=== PATIENT | female | born 1960 | race Caucasian/White ===

== ENCOUNTER 2020-01-23 05:59 | Inpatient (IN) ==
[2020-01-23 06:45] LABS: BASO# 0.04 X1000 (0.0-0.2); BASO% 0.3 % (0.0-0.8); EOS# 0.13 X1000 (0.0-0.7); HEMATOCRIT 50.1 % (37.0-47.0); HEMOGLOBIN 16.4 g/dL (12.0-16.0); IMM GRAN# 0.04 X1000 (0.0-0.04); IMM GRAN% 0.3 % (0.0-0.5); LYMPH# 2.45 X1000 (1.2-3.4); LYMPH% 19.4 % (20.5-51.1); MCH 29.8 PG (27-31); MCHC 32.7 g/dL (33-37); MCV 90.9 FL (81-99); MONO# 1.79 X1000 (0.11-0.59); MONO% 14.2 % (1.7-9.3); MPV 9.7 FL (7.4-10.4); NEUT# 8.16 X1000 (1.4-6.5); NEUT% 64.8 % (42.2-75.2); PLT 471 X1000 (130-400); RBC 5.51 XMIL (4.2-5.4); RDW 15.2 % (11.5-14.5); WBC 12.61 X1000 (4.8-10.8)
[2020-01-23 06:53] LABS: EOS 2 % (1-10); LYMPHS 20 % (21-51); MONO 10 % (1-9); SEGS 68 % (42-75)
--- NOTE | 2020-01-23 07:18 | PROVIDER DOCUMENTATION ---
HPI-Abdominal Pain/GI Problem - General Chief Complaint: Flank Pain Stated Complaint: UTI Time Seen by Provider: 01/23/20 07:07 Allergies/Adverse Reactions: Patient Allergies Allergy/AdvReac Type Severity Reaction Status Date / Time No Known Allergies Allergy Verified 09/26/18 18:07 Home Medications: Home Medication List Medication Instructions Recorded Confirmed Last Taken Type Imatinib Mesylate [Gleevec] 400 mg PO DAILY 04/15/15 01/23/20 01/17/20 18:00 History Promethazine [Phenergan] 25 mg PO Q6-8H PRN PRN 04/15/15 01/23/20 01/16/20 08:00 History Fentanyl 50 mcg TOP Q3DAYS 07/21/18 01/23/20 01/20/20 09:00 History CefDINIR [Omnicef] 300 mg PO BID #14 cap 01/24/20 Unknown Rx - History of Present Illness-ABD Nature of Presenting Problems: pt arrived via ems. pt states she has tumors in her pelvix, stints in her ureters that she has to get replaced soon, pt states she self caths and recently urine has been more "thick" and more frequenct. pt c/o nicol flank pain. pt also states she is out of her fentayl patches. pt has ostomy. 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 Pt is A&o3 Abdominal Pain Onset Location: reports: generalized abdomen Pain Radiation: reports: no radiation Quality of Pain: reports: none Severity in ED: reports: moderate Onset/Duration: reports: gradual Timing: reports: still present Activities at Onset: reports: none Exposure to sick contacts?: No Modifying Factors: improves with: nothing Associated Symptoms: reports: constipation, genitourinary problems. denies: fever/chills, shortness of breath Last BM: unsure Dark Stools Present?: reports: none noticed Rectal Bleeding: reports: none Rectal Pain: reports: none Review of Systems - Adult - REVIEW OF SYSTEMS - ADULT Constitutional: reports: fatique Eyes: reports: no symptoms reported Ears, Nose, Mouth & Throat: reports: no symptoms reported Cardiovascular: reports: no symptoms reported Respiratory: reports: no symptoms reported Gastrointestinal: reports: no symptoms reported Genitourinary: reports: see HPI, flank pain, other (self cath) Musculoskeletal: reports: no symptoms reported Integumentary: reports: no symptoms reported Neurological: reports: no symptoms reported Psychiatric: reports: no symptoms reported Endocrine: reports: no symptoms reported Hematologic/Lymphatic: reports: no symptoms reported Allergic/Immunologic: reports: no symptoms reported Past History - Adult - PAST MEDICAL HISTORY-ADULT Review of Records: reports: Nursing Assessment Review Major Childhood Illnesses: reports: denies history Cardiovascular: reports: HTN Respiratory: reports: denies history Gastrointestinal: reports: cancer Obstetrical/Gynecological: reports: denies history Genitourinary: reports: denies history Musculoskeletal: reports: denies history Neurological: reports: denies history Endocrine/Immune: reports: denies history Other Conditions: reports: other cancer - PRIOR SURGERIES/PROCEDURES Surgical/Procedure History: reports: bowel surgery - IMMUNIZATION STATUS Childhood Immunizations: See Nurse Assessment Flu Vaccine: See Nurse Assessment - FAMILY HISTORY Family History: reviewed, not pertinent Physical Exam-General - PHYSICAL EXAM-ADULT Initial Vital Signs Reviewed: Yes - CONSTITUTIONAL General Appearance: alert, no apparent distress - EYES Eyes: PERRL/EOMI, pink conjunctivae - HEAD, EARS, NOSE, MOUTH & THROAT HENMT: normocephalic/atraumatic, moist mucous membranes, normal ENT inspection - NECK Neck: non-tender, supple - RESPIRATORY Respiratory: chest non-tender, lungs clear, normal breath sounds - CARDIOVASCULAR Cardiovascular: no edema, tachycardia - GASTROINTESTINAL (ABDOMEN) Abdominal Exam: soft, other (diffuse tenderness) - LYMPHATIC Lymphatic: no adenopathy - MUSCULOSKELETAL Back Exam: normal inspection, no CVA tenderness, no vertebral tenderness Extremity: non-tender, normal gait - SKIN Integumentary: normal color, normal turgor, warm/dry - NEUROLOGIC Neurologic: grossly normal, no motor/sensory deficits - PSYCHIATRIC Psych/Mental Status: normal mood/affect Progress - PLAN OF CARE/RESULTS Progress/Plan/Lab Results: Vital Signs - 8 hr 01/23/20 05:59 Temperature 98.0 F Pulse Rate 127 H Respiratory Rate 18 Blood Pressure 144/98 O2 Sat by Pulse Oximetry 98 Laboratory Results - last 24 hr 01/23/20 01/23/20 01/23/20 06:33 06:33 06:35 WBC 12.61 H RBC 5.51 H Hgb 16.4 H Hct 50.1 H MCV 90.9 MCH 29.8 MCHC 32.7 L RDW Std Deviation 15.2 H Plt Count 471 H MPV 9.7 Immature Gran % (Auto) 0.3 Neut % (Auto) 64.8 Lymph % (Auto) 19.4 L [place] % (Auto) 14.2 H Eos % (Auto) 1.0 Baso % (Auto) 0.3 Immature Gran # (Auto) 0.04 Neut # (Auto) 8.16 H Lymph # (Auto) 2.45 [place] # (Auto) 1.79 H Eos # (Auto) 0.13 Baso # (Auto) 0.04 Segmented Neutrophils 68 Lymphocytes 20 L Monocytes 10 H Eosinophils 2 Plasma Lactate 1.8 Urine Source CLEAN CATCH Orders Category Date Time Status NEWS Score 2-4:Order NEWS Lactate Series NOW Care 01/23/20 06:[address] ABDOMEN/PELVIS W/O CONTRAST [CT] Stat Exams 01/23/20 07:16 Ordered CBC WITH DIFF [HEME] Stat Lab 01/23/20 06:33 Completed CMP [COMPREHENSIVE METABOLIC PANEL] [CHEM] Stat Lab 01/23/20 07:16 Uncollected LACTATE, PLASMA [CHEM] Lab 01/23/20 06:33 Completed LACTATE, PLASMA [CHEM] Lab 01/23/20 09:15 Uncollected LACTATE, PLASMA [CHEM] Lab 01/23/20 12:15 Uncollected UA [URINALYSIS W/POSS RFLX CULT] [URINALYSIS] Stat Lab 01/23/20 06:35 Results Result Diagrams: 01/24/20 05:05 01/24/20 05:05 Departure - Departure Date of Disposition Decision: 01/23/20 Time of Disposition Decision: 12:09 DIAGNOSIS: Chronic abdominal pain UTI (urinary tract infection) Qualifiers: Urinary tract infection type: catheter-associated UTI Indwelling urinary catheter type: unspecified Encounter type: initial encounter Qualified Code(s): T83.511A - Infection and inflammatory reaction due to indwelling urethral catheter, initial encounter; N39.0 - Urinary tract infection, site not specified Disposition: ADMITTED INPATIENT 09 Certified Medical Emergency: Emergent Condition: Good - Critical Care Note This patient required my direct & personal management of CC.: No Attestation - Physician/ [place] Attestation Patient care was provided by Advanced Practice Provider:: No The physician spent face to face time with patient:: Yes Advanced Practice Provider documentation review:: Supervising physician onsite and consulted in the evaluation and care of this patient. The physician did have a face to face encounter with the patient.
[2020-01-23 07:40] LABS: ALBUMIN 4.6 g/dL (3.5-5.0); CALCIUM 10.1 mg/dL (8.8-10.2); CREATININE 1.8 mg/dL (0.5-0.9); TOTAL BILIRUBIN 0.2 mg/dL (0.20-1.00); TOTAL PROTEIN 8.8 g/dL (6.3-8.3)
[2020-01-23 07:44] LABS: URINE SOURCE CLEAN CATCH
[2020-01-23 08:00] LABS: CLARITY TURBID (CLEAR); COLOR PALE YELLOW; GLUCOSE URINE NEGATIVE (NEGATIVE); URINE BACTERIA 4+ /HFP; URINE CAST NONE SEEN /LPF; URINE CRYSTAL NONE SEEN /HPF; URINE EPITHELIAL CELLS <10 /HPF (<10); URINE RBC TNTC /HPF (<10); URINE WBC TNTC /HPF (<10); URINE YEAST NONE SEEN /HPF
[2020-01-23 08:01] LABS: BILIRUBIN URINE NEGATIVE (NEGATIVE); BLOOD URINE LARGE (NEGATIVE); KETONE URINE TRACE mg/dL (NEGATIVE); LEUKOCYTES URINE MODERATE (NEGATIVE); NITRITE URINE NEGATIVE (NEGATIVE); PROTEIN URINE >=300 mg/dL (NEGATIVE); SP GRAVITY URINE 1.005; UROBILINOGEN URINE 0.2 EU/dL (0.2-1.0)
--- NOTE | 2020-01-23 08:03 | Diag Imaging Result Doc PS360 ---
EXAM: CT ABDOMEN/PELVIS W/O CONTRAST - 01/23/2020 HISTORY: abdominal pain TECHNIQUE: CT abdomen/pelvis without contrast. No contrast administered per request of the referring provider. COMPARISON: 09/26/2018 FINDINGS: The visualized lung bases are clear. There is a 1.7 x 2 cm low-density lesion in the right lobe liver which appears decreased in size from 2 x 2.6 cm on prior exam. There is an approximately 0.8 x 1.1 cm low-density lesion in the more superior right lobe of liver which is decreased in size from 1 x 1.4 cm on the prior exam. There is no discrete new liver lesion identified. There are no acute changes identified in the spleen, adrenal glands, or pancreas. There are no calcified gallstones or pericholecystic inflammation identified. There are bilateral double pigtail ureteral stents which extends from the respective renal pelvis to the urinary bladder. There is substantial left hydronephrosis which may have increased mildly. There is a small nonobstructing stone in the lower left kidney. There is mild to moderate right hydronephrosis which appears to have decreased. There is some renal cortical thinning which is most prominent on the right. There are postsurgical changes of distal colectomy with left lower quadrant colostomy. There is a large amount retained fecal debris in the remaining colon suggesting constipation. There is no evidence of bowel obstruction. There is no free air, substantial free fluid, or abscess identified. Images of the pelvis otherwise show stable presacral scarring. There is stable calcified lesion at the right superior lateral pelvis. There are postsurgical changes of distal colectomy with left lower quadrant colostomy. IMPRESSION: Status post distal colectomy with left lower quadrant colostomy. Large amount retained of retained fecal debris in colon suggesting constipation. No bowel obstruction. No abscess. No free air. Bilateral double pigtail ureteral stents in place. Substantial left hydronephrosis mild to moderate right hydronephrosis. Renal cortical thinning, both prominent on the right. Mild decrease in size of low-density liver lesions. This exam was performed using automated exposure control, adjustment of mA or kV according to patient size, and/or use of iterative reconstruction technique. Electronically signed by Eduardo Zarate 01/23/2020 8:01 AM
[2020-01-23] MEDS ORDERED: NS 1,000 ML IV ONE (08:50)
[2020-01-23] MEDS ORDERED: ROCEPHIN 1 GM in NS 50 ML IV ONE (08:50)
[2020-01-23] MEDS ORDERED: ZOFRAN IV PRN (11:00)
[2020-01-23] MEDS: NS 1,000 ML IV SCH (11:24)
--- NOTE | 2020-01-23 12:20 | HISTORY AND PHYSICAL ---
PRIMARY CARE PHYSICIAN: Dr. Tracey CHIEF COMPLAINT: Flank pain. HISTORY OF PRESENT ILLNESS: Ms. Winchester is a 59-year-old female with a past medical history of chronic UTIs, renal stenting x10, chronic kidney disease stage 4, hypertension; GI cancer with possible metastasis to the liver, on oral chemotherapy; drug abuse, hydronephrosis, chronic pain, and home self-catheterization. The patient does present to the ER today with complaints of flank pain. The patient states she has a 4-day history of pain where she has been taking Azo and has been drinking cranberry juice. She has had decreased urine output. The patient states she knew she was getting a UTI so she decided to come to the ER at this time. Laboratory findings do show an elevated white blood cell count of 12.61. Urinalysis does show a large amount of protein. Microscopic shows white blood cells, 4+ bacteria. The patient does deny any cough, congestion, dyspnea, or flu-like symptoms, neck pain, stiffness, excessive thirst, chest pain, palpitations, orthopnea, PND, hemoptysis, nausea, vomiting, melena, hematemesis, diarrhea, constipation, muscle pain or weakness, syncope, dizziness, vertigo, or any other pertinent symptoms at this time. REVIEW OF SYSTEMS: A 10-point review of systems has been obtained and are negative except what is stated above in HPI. PAST MEDICAL HISTORY: 1. Chronic UTIs with self-catheterization at home. 2. GI cancer with possible metastasis, on oral chemotherapy. The patient's doctor is at the [facility] in [place]. 3. Hydronephrosis. 4. Chronic kidney disease stage 4. 5. Chronic pain. 6. Hypertension. 7. Drug abuse. 8. Tobacco dependency. PAST SURGICAL HISTORY: 1. Appendectomy. 2. Tubal ligation. 3. Hysterectomy. 4. Hernia repair. 5. In 2004, a GI tumor removal. 6. In 2005, first of 10 bladder stentings, as well as bladder repair due to a fistula. 7. Subsequent ostomy placement due to tumor removal. FAMILY HISTORY: Father is known to have diabetes and [place] with coronary artery disease. Mother is osteoarthritis, COPD. She has a sister that has COPD. SOCIAL HISTORY: The patient does smoke 1/2 pack to 1 pack of cigarettes per day for greater than 40 years. She occasionally drinks alcohol. She does smoke marijuana and use methamphetamines. She does live with her boyfriend and some other relatives. The patient states she is . ALLERGIES: No known drug allergies. HOME MEDICATIONS: Home medication reconciliation has not been performed in the computer. PHYSICAL EXAMINATION: VITAL SIGNS: Temperature 98.9 degrees, pulse rate 121, respiratory rate 19, blood pressure 132/94, O2 saturation 96% on room air. GENERAL: This is a 59-year-old female. She is lying in the ER stretcher. She is well developed. She is in no acute distress. She is thin and frail. HEENT: Atraumatic, normocephalic. Pupils are equal, round, reactive to light. Mucous membranes are dry. NECK: Supple. No lymphadenopathy. Trachea is midline. No JVD. CARDIOVASCULAR: Tachycardic on the monitor. It is regular rate and rhythm. There are no murmurs, gallops, or rubs appreciated. RESPIRATORY: Lung sounds are clear. Respirations are nonlabored. There is no accessory muscle usage. GASTROINTESTINAL: The abdomen is flat. There is an ostomy bag noted to the left lower quadrant. Stoma is pink and viable. Bag is intact. There are still contents in bag. Bowel sounds are present x4. Abdomen is nondistended. GENITOURINARY: There is no suprapubic tenderness noted. The patient is having flank pain to her back. The patient is having decreased urine output. NEUROLOGIC: Patient is awake, alert, oriented x4. She is talking excessively. She does seem anxious. MUSCULOSKELETAL: Full distal strength noted. No abnormalities, no deformities. EXTREMITIES: No clubbing, no cyanosis, no edema. DP and PT pulses are present and palpable. SKIN: Warm, dry, and intact. No rashes. No bruises. No diaphoresis. LABS AND DIAGNOSTICS: White blood cell count 12.61, hemoglobin 16.4, hematocrit 50.1, platelet count 471,000. Sodium 138, potassium 5, BUN is 44, creatinine 1.8, glucose 110. Urinalysis does show a large amount of protein, large amount of blood, does show in the microscopic, moderate amount of white blood cell count, 4+ bacteria. CT of the abdomen and pelvis does show a left lower quadrant colostomy, large amount of retained fecal debris suggesting constipation. No obstruction. No abscess. It does show bilateral ureteral stents, left hydronephrosis and right hydronephrosis, mild decrease in size of low- density liver lesions. Shows a 1.7 x 2 cm low-density lesion in the right lobe of the liver which appears decreased in size from 2 x 2.6 cm on prior exam. There is approximately a 0.8 x 1.1 cm low-density lesion in the more superior right lobe of the liver, which is decreased in size from 1 x 1.4 cm on the prior exam. There is no new liver lesions identified. Shows a small nonobstructing stone in the left lower kidney. ASSESSMENT: 1. Urinary tract infection with a history of chronic urinary tract infections and self- catheterization at home. 2. History of chronic kidney disease stage 4. 3. History of gastrointestinal cancer with possible metastatic disease to the liver, on oral chemotherapy. 4. History of drug abuse. 5. Tobacco dependency. 6. Hypertension. PLAN: We will admit this patient to the medical floor. We will place her on IV fluid hydration of normal saline at 75 mL an hour. We will place her on IV Rocephin 1 gram IV every 24 hours. We will repeat labs in the morning. We will place her on ekg monitor tech. Supplemental O2. We will resume home medications as appropriate. We will place her on a regular diet. Blood cultures and urine cultures have been obtained. We will await those results. I will place her on SCDs for DVT prophylaxis. I have given her a nicotine patch, and I have counseled her about smoking cessation for greater than 5 minutes. I have also counseled her about drug cessation information for greater than 5 minutes. We will provide her with Zofran 4 mg IV every 4 hours p.r.n. for her nausea. All other further treatment pending hospital course and laboratory data. Dictated by SEGUNDO Hernandez for Victoriano Holt MD cc: MD Torsten Carvajal MD
[2020-01-23] MEDS: NICODERM PATCH TD SCH (12:27)
[2020-01-23] MEDS: ROCEPHIN 1 GM in NS 50 ML IV SCH (14:23)
[2020-01-23 18:58] LABS: UR AMPHETAMINES QUAL PRESUMPTIVE POSITIVE (NONE DETECT); UR BARBITUATES QUAL NONE DETECTED (NONE DETECT); UR BENZODIAZEPIN QUAL NONE DETECTED (NONE DETECT); UR CANNABINOIDS QUAL NONE DETECTED (NONE DETECT); UR COCAINE QUAL NONE DETECTED (NONE DETECT); UR METHADONE QUAL NONE DETECTED (NONE DETECT); UR METHAMPHETAMINE QUAL PRESUMPTIVE POSITIVE (NONE DETECT); UR OPIATES QUAL NONE DETECTED (NONE DETECT); UR OXYCODONE QUAL PRESUMPTIVE POSITIVE (NONE DETECT); UR PCP QUAL NONE DETECTED (NONE DETECT); UR PROPOXYPHENE QUAL NONE DETECTED (NONE DETECT); UR TCA QUAL NONE DETECTED (NONE DETECT)
--- NOTE | 2020-01-23 21:48 | HISTORY AND PHYSICAL ---
ADDENDUM: Patient seen and examined by myself. Full note dictated and discussed with nurse practitioner. Patient presented to the hospital noting that she has chronic UTIs and does self- catheterizations at home. Her major concern is that her Duragesic patch fell off and she currently is out of patches. She states that she needs patches so that she does not go into withdrawal. After much discussion, she does note that she has been having some flank pain and has had decreased urine output. It is quite difficult to keep her on task and to keep her answering the questions that are asked. Overall, it does appear as though she may have a urinary tract infection. CT shows bilateral urinary stents, left hydronephrosis, right hydronephrosis. She has a white count of 12. We are going to admit to the hospital, antibiotics, IV fluids, and will follow. cc: Victoriano Holt MD
[2020-01-24] MEDS: NS 1,000 ML IV SCH (01:53)
[2020-01-24 06:11] LABS: BASO# 0.03 X1000 (0.0-0.2); BASO% 0.4 % (0.0-0.8); EOS# 0.19 X1000 (0.0-0.7); EOS% 2.6 % (0.0-10.0); HEMATOCRIT 40.8 % (37.0-47.0); HEMOGLOBIN 12.5 g/dL (12.0-16.0); IMM GRAN# 0.01 X1000 (0.0-0.04); IMM GRAN% 0.1 % (0.0-0.5); LYMPH# 1.79 X1000 (1.2-3.4); LYMPH% 24.7 % (20.5-51.1); MCH 28.5 PG (27-31); MCHC 30.6 g/dL (33-37); MCV 92.9 FL (81-99); MONO# 1.44 X1000 (0.11-0.59); MONO% 19.8 % (1.7-9.3); NEUT% 52.4 % (42.2-75.2); PLT 359 X1000 (130-400); RBC 4.39 XMIL (4.2-5.4); WBC 7.26 X1000 (4.8-10.8)
[2020-01-24 06:13] LABS: CALCIUM 8.9 mg/dL (8.8-10.2); CREATININE 1.4 mg/dL (0.5-0.9); POTASSIUM 4.4 mmol/L (3.5-5.1)
[2020-01-24 06:59] LABS: EOS 2 % (1-10); LYMPHS 25 % (21-51); MONO 18 % (1-9); SEGS 55 % (42-75)
[2020-01-24 07:29] VITALS: BP 174/99
[2020-01-24] MEDS ORDERED: PATIENT'S OWN MED PO SCH (09:00)
[2020-01-24] MEDS: NICODERM PATCH TD SCH (10:07)
--- NOTE | 2020-01-24 10:37 | Diag Imaging Result Doc PS360 ---
EXAM: CT ABDOMEN/PELVIS W/O CONTRAST HISTORY: follow up on hydronephrosis TECHNIQUE: CT abdomen and pelvis without intravenous contrast COMPARISON: 01/23/2020 FINDINGS: No change in the appearance of the organs in the upper abdomen. There are bilateral ureteral stents with persistent hydronephrosis. No definite change. No change in the tiny left lower pole calyceal stone. Prominent atherosclerosis. No aortic aneurysm. There is a large amount of stool in the colon. There is a left lower quadrant ostomy. There is a Singh catheter in the urinary bladder. Large pelvic calcifications are unchanged. IMPRESSION: Stable exam This exam was performed using automated exposure control, adjustment of mA or kV according to patient size, and/or use of iterative reconstruction technique. Electronically signed by Ulysses Carrillo 01/24/2020 10:34 AM
[2020-01-24] MEDS: ROCEPHIN 1 GM in NS 50 ML IV SCH (12:07)
--- NOTE | 2020-01-25 05:27 | DISCHARGE SUMMARY ---
ADMISSION DATE: 01/23/2020 DISCHARGE DATE: 01/24/2020 ADDENDUM: Patient seen and examined by myself. Full note dictated and discussed with nurse practitioner. On discharge, patient is awake, alert. Currently, she is in no distress. She does have hydronephrosis although this has improved. She has chronic stents. Does not appear as though she has a urinary infection as her culture thus far has been negative. We are going to discharge her home. She will follow up outpatient with her urologist. She has an appointment prescheduled next week. Her renal function has improved. Creatinine was 1.8, currently down to 1.4. cc: Victoriano Holt MD
--- NOTE | 2020-01-25 13:15 | DISCHARGE SUMMARY ---
ADMISSION DATE: 01/23/2020 DISCHARGE DATE: 01/24/2020 PRIMARY CARE PHYSICIAN: Dr. Sandhu ADMISSION DIAGNOSES: 1. Urinary tract infection with history of chronic UTIs and self catheterization at home. 2. History of CKD stage 4. 3. History of gastrointestinal cancer with possible metastasis to the liver on oral chemotherapy. 4. History of drug abuse. 5. Tobacco dependency. 6. Hypertension. DISCHARGE DIAGNOSIS: 1. Urinary tract infection with history of chronic UTIs and self catheterization at home. 2. History of CKD stage 4. 3. History of gastrointestinal cancer with possible metastasis to the liver on oral chemotherapy. 4. History of drug abuse. 5. Tobacco dependency. 6. Hypertension. SUMMARY OF FINDINGS: This is a 59-year-old female who presented to the ER with complaints of flank pain for 4 days. Has started taking azo and drinking cranberry juice, had decreased urinary output, felt that she was getting a UTI, so she came on to the emergency room. Her white count was 12.61. UA showed a large amount of protein. Microscopic showed white blood cells, 4+ bacteria. She was admitted, placed on IV hydration, IV antibiotics. She had an abdomen and pelvic CT on arrival that showed she had her bilateral double pigtail ureteral stents in place and substantial left hydronephrosis, mild to moderate right hydronephrosis. We repeated that CT and it was a stable exam. It did not appear, though, that she had a UTI. Her urine culture did grow a diphtheroids at 20 to 30,000 colony count and it was felt that she could safely be discharged home and follow up with her urologist. She has an appointment prescheduled for next week. Her creatinine did go down from 1.8 to 1.4. It was felt that she could safely be discharged home. DISCHARGE MEDICATIONS: Included cefdinir 300 mg p.o. b.i.d. #14 with no refills, fentanyl 50 mcg topically q. 3 days, Gleevec 400 mg p.o. daily, and Phenergan 25 mg p.o. q. 6-8 hours p.r.n. FOLLOWUP: She will follow up with her urologist in the next 1 to 2 weeks and with her primary care physician. All discharge instructions were reviewed with the patient and she verbalized understanding. TIME SPENT: 35 minute discharge. Dictated by SEGUNDO Rasheed for Victoriano Holt MD cc: SEGUNDO Rasheed MD [facility]
[2020-01-26] MEDS ORDERED: DURAGESIC 50 MICROGM/HR PATCH TD SCH (06:00)
== END 2020-01-24 13:00 | disposition home or self-care (01) | DRG 436 ==
LOC: P.ED 05:59 → P.MEDSURG 11:35
PROVIDERS: ATTEND Family Medicine

== ENCOUNTER 2020-02-05 20:05 | Inpatient (IN) ==
--- NOTE | 2020-02-05 20:56 | Diag Imaging Result Doc PS360 ---
EXAM: CHEST-2 VIEWS - 02/05/2020 HISTORY: chest pain TECHNIQUE: Chest two views COMPARISON: None. FINDINGS: Heart size is normal. There are apparent mild COPD changes. There is no consolidation, pleural effusion, or pneumothorax identified. IMPRESSION: Apparent mild COPD changes. No evidence of acute disease. Electronically signed by EduardoSampleOn Inckenyon 02/05/2020 8:54 PM
[2020-02-05 20:57] LABS: BASO# 0.03 X1000 (0.0-0.2); BASO% 0.2 % (0.0-0.8); EOS# 0.34 X1000 (0.0-0.7); EOS% 2.6 % (0.0-10.0); HEMATOCRIT 35.3 % (37.0-47.0); HEMOGLOBIN 10.7 g/dL (12.0-16.0); IMM GRAN# 0.02 X1000 (0.0-0.04); IMM GRAN% 0.2 % (0.0-0.5); LYMPH# 2.15 X1000 (1.2-3.4); LYMPH% 16.2 % (20.5-51.1); MCH 28.4 PG (27-31); MCHC 30.3 g/dL (33-37); MCV 93.6 FL (81-99); MONO# 0.87 X1000 (0.11-0.59); MONO% 6.5 % (1.7-9.3); MPV 9.3 FL (7.4-10.4); NEUT# 9.89 X1000 (1.4-6.5); NEUT% 74.3 % (42.2-75.2); PLT 442 X1000 (130-400); RBC 3.77 XMIL (4.2-5.4); RDW 14.9 % (11.5-14.5)
[2020-02-05 21:05] LABS: INR 0.89; PROTIME 12.5 Seconds (11.0-16.0)
[2020-02-05 21:06] LABS: PTT 31.6 Seconds (22.3-41.8)
[2020-02-05 21:14] LABS: ALBUMIN 3.7 g/dL (3.5-5.0); CALCIUM 9.4 mg/dL (8.8-10.2); CREATININE 1.6 mg/dL (0.5-0.9); POTASSIUM 4.2 mmol/L (3.5-5.1); TOTAL BILIRUBIN 0.2 mg/dL (0.20-1.00); TOTAL PROTEIN 6.3 g/dL (6.3-8.3)
--- NOTE | 2020-02-05 21:40 | PROVIDER DOCUMENTATION ---
This chart was entered by Zoila Ortiz Scribe, acting as scribe for Sara Torres MD. HPI-Chest Pain - General Chief Complaint: Chest Pain Stated Complaint: Chest Tightness Time Seen by Provider: 02/05/20 20:22 Source: patient Allergies/Adverse Reactions: Patient Allergies Allergy/AdvReac Type Severity Reaction Status Date / Time No Known Allergies Allergy Verified 02/05/20 20:11 Home Medications: Home Medication List Medication Instructions Recorded Confirmed Last Taken Type Imatinib Mesylate [Gleevec] 400 mg PO DAILY 04/15/15 01/23/20 01/17/20 18:00 History Fentanyl 50 mcg TOP DAILY 02/05/20 02/05/20 Unknown History - History of Present Illness-CP Nature of Presenting Problem: 59yof presents to ED by EMS cc chest tightness that happened 4x today and also had some tingling down back of head and both arms. Pt denies SOB. Pt has hx of gastrointestinal "stromal" tumors and is a pt at [facility]. Pt reports fmhx of heart disease from father and pt has hx of stents in both kidneys. Pt denies pain in ED. She denies any previous cardiac history. She is currently chest pain free. Pt is a Smoker. Location: reports: central Quality of Pain: reports: tightness Severity in ED: mild Onset/Duration: this morning Timing: resolved prior to arrival Context/Activities at Onset: reports: light activity Modifying Factors: improves with: nothing Associated Symptoms: reports: denies symptoms Nitro Today/Relief: no nitro taken today Aspirin Treatment Today: no aspirin today Prior Chest Pain/Cardiac Workup: reports: no prior chest pain Similar Symptoms Previously?: No Recently Seen Here or By Another Healthcare Provider: No Review of Systems - Adult - REVIEW OF SYSTEMS - ADULT Constitutional: reports: see HPI. denies: chills, fever, fatique Eyes: reports: no symptoms reported Ears, Nose, Mouth & Throat: reports: no symptoms reported Cardiovascular: reports: see HPI, chest pain. denies: palpitations Respiratory: reports: see HPI. denies: shortness of breath Gastrointestinal: reports: no symptoms reported Genitourinary: reports: no symptoms reported Musculoskeletal: reports: no symptoms reported Integumentary: reports: no symptoms reported Neurological: reports: no symptoms reported Psychiatric: reports: no symptoms reported Endocrine: reports: no symptoms reported Hematologic/Lymphatic: reports: no symptoms reported Allergic/Immunologic: reports: no symptoms reported All Other Systems: Reviewed and Negative Past History - Adult - PAST MEDICAL HISTORY-ADULT Review of Records: reports: Nursing Assessment Review, Medications Reviewed, Social history reviewed & non-contributory. Major Childhood Illnesses: reports: denies history Cardiovascular: reports: HTN Respiratory: reports: denies history Gastrointestinal: reports: cancer Obstetrical/Gynecological: reports: denies history Genitourinary: reports: denies history Musculoskeletal: reports: denies history Neurological: reports: denies history Endocrine/Immune: reports: denies history Other Conditions: reports: other cancer - PRIOR SURGERIES/PROCEDURES Surgical/Procedure History: reports: bowel surgery - IMMUNIZATION STATUS Childhood Immunizations: See Nurse Assessment Flu Vaccine: See Nurse Assessment - FAMILY HISTORY Family History: reviewed, not pertinent - SOCIAL HISTORY Smoking: cigarettes, greater than 1 pack/day Provider spent 3-5 mins advising pt. on dangers of tobacco.: Discussed manners to quit use, and f/u contacts for add'l counseling. Physical Exam-General - PHYSICAL EXAM-ADULT Initial Vital Signs Reviewed: Yes - CONSTITUTIONAL General Appearance: alert, no apparent distress, thin, other (chronically ill appearing). negative: anxious, combative - EYES Eyes: PERRL/EOMI, pink conjunctivae. negative: photophobia - HEAD, EARS, NOSE, MOUTH & THROAT HENMT: normocephalic/atraumatic. negative: angioedema - NECK Neck: supple, normal inspection - RESPIRATORY Respiratory: chest non-tender, no respiratory distress, no accessory muscle use, decreased breath sounds (bilaterally, mild). negative: rhonchi, wheezing - CARDIOVASCULAR Cardiovascular: normal peripheral pulses, regular rate, rhythm, no murmur. negative: bradycardia, tachycardia - GASTROINTESTINAL (ABDOMEN) Abdominal Exam: normal bowel sounds, non tender, soft - MUSCULOSKELETAL Back Exam: normal inspection Extremity: normal inspection, no pedal edema. negative: deformity - SKIN Integumentary: normal color, warm/dry. negative: diaphoresis, jaundice, rash - NEUROLOGIC Neurologic: grossly normal - PSYCHIATRIC Psych/Mental Status: normal mood/affect, oriented x 3. negative: anxious - HEART Score HEART Score: History: Moderately Suspicious HEART Score: ECG: Non-Specific Repolarization Disturbance/LBBB/PM HEART Score: Age: 45-65 Years HEART Score: Risk Factors for Atherosclerotic Disease: 1 or 2 Risk Factors HEART Score: Troponin: 1-3x Normal Limit Total HEART Score:: 5 Progress - PLAN OF CARE/RESULTS Progress/Plan/Lab Results: Vital Signs - 8 hr 02/05/20 20:06 02/05/20 22:53 Temperature 98.1 F Pulse Rate 89 84 Respiratory Rate 16 20 Blood Pressure 146/88 131/85 O2 Sat by Pulse Oximetry 96 96 Laboratory Results - last 24 hr 02/05/20 02/05/20 02/05/20 20:32 20:32 20:32 WBC RBC Hgb Hct MCV MCH MCHC RDW Std Deviation Plt Count MPV Immature Gran % (Auto) Neut % (Auto) Lymph % (Auto) [place] % (Auto) Eos % (Auto) Baso % (Auto) Immature Gran # (Auto) Neut # (Auto) Lymph # (Auto) [place] # (Auto) Eos # (Auto) Baso # (Auto) PT INR PTT (Actin FS) Sodium 144 Potassium 4.2 Chloride 103 Carbon Dioxide 29 Anion Gap 12 BUN 28 H Creatinine 1.6 H Estimated GFR/1.73 m2 33 BUN/Creatinine Ratio 18 Glucose 92 Calculated Osmolality 292 Calcium 9.4 Total Bilirubin 0.20 AST 28 ALT 30 Alkaline Phosphatase 123 H Creatine Kinase 67 Troponin T High Sens 60 H Tgv-O-Exllgvctmje Pept 115 Total Protein 6.3 Albumin 3.7 Globulin 3.0 Albumin/Globulin Ratio 1.0 02/05/20 02/05/20 02/05/20 20:32 20:32 22:35 WBC 13.30 H RBC 3.77 L Hgb 10.7 L Hct 35.3 L MCV 93.6 MCH 28.4 MCHC 30.3 L RDW Std Deviation 14.9 H Plt Count 442 H MPV 9.3 Immature Gran % (Auto) 0.2 Neut % (Auto) 74.3 Lymph % (Auto) 16.2 L [place] % (Auto) 6.5 Eos % (Auto) 2.6 Baso % (Auto) 0.2 Immature Gran # (Auto) 0.02 Neut # (Auto) 9.89 H Lymph # (Auto) 2.15 [place] # (Auto) 0.87 H Eos # (Auto) 0.34 Baso # (Auto) 0.03 PT 12.5 INR 0.89 PTT (Actin FS) 31.6 Sodium Potassium Chloride Carbon Dioxide Anion Gap BUN Creatinine Estimated GFR/1.73 m2 BUN/Creatinine Ratio Glucose Calculated Osmolality Calcium Total Bilirubin AST ALT Alkaline Phosphatase Creatine Kinase Troponin T High Sens 96 H D Klo-Y-Qxufnulrwvu Pept Total Protein Albumin Globulin Albumin/Globulin Ratio Orders Category Date Time Status Cardiac Monitoring DIRECTED Care 02/05/20 20:12 Active Nursing- MD Consult Request ROUTINE Care 02/05/20 23:20 Active Oxygen Therapy- ED Nursing DIRECTED Care 02/05/20 20:12 Active Resuscitation Status Routine Care 02/05/20 23:17 Ordered Saline Loc NOW Care 02/05/20 20:12 Active Physician/Provider Consults Routine Cons 02/05/20 23:20 Ordered CHEST-2 VIEWS [RAD] Stat Exams 02/05/20 20:12 Completed CBC WITH ELECTRONIC DIFF [HEME] Stat Lab 02/05/20 20:32 Completed CK PROFILE [SP CHEM] Stat Lab 02/05/20 20:32 Completed COMPREHENSIVE METABOLIC PANEL [CHEM] Stat Lab 02/05/20 20:32 Completed PRO B-NATRIURETIC PEPTIDE Stat Lab 02/05/20 20:32 Completed PROTIME WITH INR [COAG] Stat Lab 02/05/20 20:32 Completed PTT [COAG] Stat Lab 02/05/20 20:32 Completed TROPONIN T HIGH SENSITIVITY Q4H Lab 02/06/20 03:00 Uncollected TROPONIN T HIGH SENSITIVITY Q4H Lab 02/06/20 07:00 Uncollected TROPONIN T HIGH SENSITIVITY Q4H Lab 02/06/20 11:00 Uncollected TROPONIN T HIGH SENSITIVITY Stat Lab 02/05/20 20:32 Completed TROPONIN T HIGH SENSITIVITY Stat Lab 02/05/20 22:35 Completed Aspirin Med 02/06/20 09:00 Ordered 324 mg PO DAILY Aspirin Med 02/05/20 23:16 Discontinued 324 mg PO NOW ONE Enoxaparin 1 mg/kg [Lovenox 1 mg/kg] Med 02/05/20 23:16 Discontinued 1 each SUBQ NOW ONE Enoxaparin 1 mg/kg [Lovenox 1 mg/kg] Med 02/06/20 09:00 Ordered 1 each SUBQ Q12H CP/SOB/Palp >45 yrs of Age Stat Oth 02/05/20 20:12 Ordered EKG [EKG] Q4H Ther 02/06/20 03:00 Ordered EKG [EKG] Q4H Ther 02/06/20 07:00 Ordered EKG [EKG] Q4H Ther 02/06/20 11:00 Ordered EKG [EKG] Stat Ther 02/05/20 20:12 Ordered Transfer/Admit Order [TRANSFER] Routine Transfer 02/05/20 23:17 Ordered Result Diagrams: 02/05/20 20:32 02/05/20 20:32 - EKG 1 Time of EKG reading by physician:: 20:09 EKG Read and Signed by:: Sara Torres EKG Interpretation (*Must complete 3 of following elements*): Abnormal (borderline;NO STEAMI) Rate: 88 Rhythm: NSR Yeoman: left AK Interval: normal 2 Time of EKG reading by physician:: 22:43 EKG Read and Signed by:: Sara Torres EKG Interpretation (*Must complete 3 of following elements*): Normal (NO STEMI) Rate: 81 Rhythm: NSR QRS: normal AK Interval: normal - XRAY 1 XRAY: Bilateral XRAY Study: Chest Impression: See EMR Report (IMPRESSION: Apparent mild COPD changes. No evidence of acute disease. Electronically signed by Eduardo Zarate 02/05/2020 8:54 PM) - CONSULTS/PCP/HOSPITALIST Notification #1 *Consult/PCP/Hospitalist*: Dr. Serrano Time Discussed: 23:15 Consult Disposition: Admit Departure - Departure Date of Disposition Decision: 02/05/20 Time of Disposition Decision: 23:13 DIAGNOSIS: NSTEMI (non-ST elevated myocardial infarction), Elevated troponin Chest pain Qualifiers: Chest pain type: unspecified Qualified Code(s): R07.9 - Chest pain, unspecified Disposition: ADMITTED INPATIENT 09 Certified Medical Emergency: Emergent Condition: Stable Additional Instructions: ED Follow Up Instructions: You have been treated by a care provider in the Emergency Department. These instructions are being provided to you so you can have an understanding of how to care for yourself upon discharge. Upon discharge from the Emergency Department, you are responsible for making arrangements for follow-up care by a physician of your choice. Take all prescribed medications as directed. Return to the Emergency Department immediately for any new or worsening symptoms. You may call the Physician Referral phone number at [phone] to obtain a list of Physicians who are taking new patients. Referrals and Follow-Ups: None,PCP [Primary Care Provider] - Discharge Education: Steps to Quit Smoking, [id number] - Critical Care Note This patient required my direct & personal management of CC.: No Attestation - Physician/ [place] Attestation Patient care was provided by Advanced Practice Provider:: No The physician spent face to face time with patient:: Yes Advanced Practice Provider documentation review:: Supervising physician onsite and consulted in the evaluation and care of this patient. The physician did have a face to face encounter with the patient. This chart was documented by the indicated scribe, (Zoila Ortiz, Rogerioibuzeil) and accurately reflects the services I performed and decisions made by me, Sara Torres MD, as attested by the provider's signature.
[2020-02-05] MEDS ORDERED: ASPIRIN PO ONE (23:16)
[2020-02-05] MEDS ORDERED: LOVENOX 1 MG/KG SUBQ ONE (23:16)
[2020-02-05] MEDS ORDERED: LOVENOX SUBQ ONE (23:30)
--- NOTE | 2020-02-05 23:33 | EKG Report ---
Test Performed on : 02/05/2020 10:40:20 PM Test Reason : chest pain Blood Pressure : / mmHG Vent. Rate : 081 BPM Atrial Rate : 081 BPM P-R Int : 130 ms QRS Dur : 078 ms QT Int : 408 ms P-R-T Axes : 059 069 057 degrees QTc Int : 473 ms Normal sinus rhythm. Normal ECG No previous ECGs available Unconfirmed Result
[2020-02-06] MEDS ORDERED: NICODERM PATCH TD ONE (00:11)
--- NOTE | 2020-02-06 02:53 | EKG Report ---
Test Performed on : 02/06/2020 02:47:23 AM Test Reason : CP Blood Pressure : / mmHG Vent. Rate : 083 BPM Atrial Rate : 083 BPM P-R Int : 130 ms QRS Dur : 070 ms QT Int : 414 ms P-R-T Axes : 066 067 054 degrees QTc Int : 486 ms Normal sinus rhythm. Prolonged QT Abnormal ECG When compared with ECG of 05-FEB-2020 22:40, (Unconfirmed) No significant change was found Confirmed by Christ Eldridge MD ([id number]) on 02/10/2020 7:15:47 PM
--- NOTE | 2020-02-06 06:31 | EKG Report ---
Test Performed on : 02/06/2020 06:20:18 AM Test Reason : CP Blood Pressure : / mmHG Vent. Rate : 080 BPM Atrial Rate : 080 BPM P-R Int : 128 ms QRS Dur : 080 ms QT Int : 414 ms P-R-T Axes : 060 067 054 degrees QTc Int : 477 ms Normal sinus rhythm. Normal ECG When compared with ECG of 06-FEB-2020 02:47, (Unconfirmed) No significant change was found Unconfirmed Result
[2020-02-06] MEDS ORDERED: MORPHINE IV PRN (07:52)
[2020-02-06] MEDS ORDERED: TYLENOL PO PRN (07:52)
[2020-02-06] MEDS ORDERED: NITROGLYCERIN SL PRN (07:52)
[2020-02-06] MEDS ORDERED: ZOFRAN IV PRN (07:52)
[2020-02-06 08:47] LABS: BASO# 0.03 X1000 (0.0-0.2); BASO% 0.2 % (0.0-0.8); EOS# 0.33 X1000 (0.0-0.7); EOS% 2.2 % (0.0-10.0); HEMATOCRIT 35.1 % (37.0-47.0); HEMOGLOBIN 10.9 g/dL (12.0-16.0); IMM GRAN# 0.04 X1000 (0.0-0.04); IMM GRAN% 0.3 % (0.0-0.5); LYMPH# 2.47 X1000 (1.2-3.4); LYMPH% 16.2 % (20.5-51.1); MCH 29.2 PG (27-31); MCHC 31.1 g/dL (33-37); MCV 94.1 FL (81-99); MONO# 0.88 X1000 (0.11-0.59); MONO% 5.8 % (1.7-9.3); MPV 9.2 FL (7.4-10.4); NEUT# 11.49 X1000 (1.4-6.5); NEUT% 75.3 % (42.2-75.2); PLT 422 X1000 (130-400); RBC 3.73 XMIL (4.2-5.4); RDW 14.9 % (11.5-14.5); WBC 15.24 X1000 (4.8-10.8)
--- NOTE | 2020-02-06 08:49 | HISTORY AND PHYSICAL ---
PRIMARY CARE PROVIDER: Dr. Torsten Tracey in [place]. That is her auto air conditioning installer/oncologist. CHIEF COMPLAINT: Burning in the back of the neck and down both arms and shoulders with shortness of breath. HISTORY OF PRESENT ILLNESS: Ms. Benson Winchester is a 59-year-old, female with a medical history of renal stents, chronic kidney disease stage IIIB, gastrointestinal cancer with possible mets, on oral chemotherapy. She has to self-cath. She has a colostomy. She currently continues to smoke on a daily basis. Smokes marijuana twice a month. Smokes methamphetamines twice a month. Rarely drinks alcohol, but is now here with symptoms that started yesterday around 4:30 p.m. of burning behind the neck, down the shoulders, and down both arms, along with shortness of breath. Each event would last for around 5 minutes and it would happen about every 20 minutes. It got better when she would sit down and rest, and it stopped completely when she was given nitroglycerin and aspirin in the ambulance. She denies having chest pain, just shortness of breath. She felt like her chest was restricted. When she presented, her troponins were slightly elevated. They never made it over 100. The highest they got was 96, and they are back down to 69. Denies any chest pain. Her kidney dysfunction is stable. It is at baseline. She did get sweaty with each event. Other than that, there were no other symptoms. No nausea, dizziness, lightheadedness. No fevers. Not coughing up any colors. There were no ST changes on her EKG. The ER physician diagnosed her with NSTEMI. I am not completely convinced that is what this is, but will go ahead and treat her and completely work her up. The ER physician consulted Dr. Alexis Steven, and put in transfer for [facility]. PAST MEDICAL HISTORY: 1. Frequent chronic urinary tract infections. She self-caths at home. 2. Stromal tumors or gastrointestinal cancer with possible mets, on oral chemotherapy. 3. Chronic hydronephrosis. 4. Chronic kidney disease stage IIIB to stage IV. 5. Chronic pain syndrome. 6. Hypertension. 7. COPD. 8. Chronic anemia. PAST SURGICAL HISTORY: 1. Appendectomy. 2. Tubal ligation. 3. Hysterectomy. 4. Ventral hernia repair. 5. Bilateral renal stents. 6. At least 10 bladder stentings with repair due to a fistula that all started in 2005. 7. Gastrointestinal tumor resection in 2004. 8. Colostomy since 2004. FAMILY HISTORY: Father had diabetes and heart disease with a heart attack. Mother with osteoarthritis and COPD. Another sister with COPD. SOCIAL HISTORY: She smokes a half a pack to a pack per day of cigarettes, starting at the age of 14. Very seldom does she drink alcohol. She smokes marijuana at least twice a month, and smokes methamphetamines or crystal meth twice a month. Lives with her boyfriend and her adult son and some other relatives. She is from a previous marriage. ALLERGIES: No known drug allergies. HOME MEDICATIONS: Not yet reconciled, except for one medication is her fentanyl 50 mcg every 72 hours. REVIEW OF SYSTEMS: A 14-point review of systems are complete, and all are negative, except for those mentioned above in the HPI. PHYSICAL EXAMINATION: VITAL SIGNS: Temperature 98.1 degrees, heart rate 78, respiratory rate 18, blood pressure 149/95, O2 saturation 97% on room air. GENERAL: Ms. Benson Winchester is a 59-year-old, female. She is in no acute distress. She is able to answer questions appropriately. HEENT: Atraumatic, normocephalic. Pupils equal, round, reactive to light. Extraocular movements intact. Mucous membranes are dry. NECK: Trachea midline. CARDIOVASCULAR: S1, S2. Regular rate and rhythm. No rubs, gallops, murmurs. No lower extremity edema. There are +2 dorsalis and radial pulses. Negative JVD or carotid bruits. PULMONARY: Clear to auscultate. Bilateral breath sounds. No accessory muscle use or work of breathing noted. GASTROINTESTINAL: Soft, nontender, nondistended. Positive bowel sounds x4. Colostomy, left lower quadrant, without any signs or symptoms of infection or obstruction. EXTREMITIES: Moves all extremities equally. Full range of motion. NEUROLOGIC: A and O x3. Follows commands. Sensory is intact. SKIN: Warm, dry, intact. LABORATORY DATA: White blood cells 13,000, hemoglobin 10, hematocrit 35, platelet count 442,000. INR 0.89, PTT is 31.6. Sodium 144, potassium 4.2, BUN 28, creatinine 1.6, glucose 92, calcium 9.4. Bilirubin 0.20, AST 28, ALT 30. CK 67. Troponin trend went from 60 to 96, down to 80 and down to 69. Albumin is 3.7. IMAGING: Chest x-ray: COPD changes. No other acute findings. EKG at 8 p.m. showed normal sinus rhythm, rate 81, QTc 473. EKG at 3 a.m. showed normal sinus rhythm, rate 83, QTc 486. EKG at 7 a.m. showed normal sinus rhythm, rate 80, QTc 477. None of these EKGs have ST elevations. ASSESSMENT AND PLAN: 1. Complaints of restricted chest, shortness of breath, and burning down the back of the neck and the shoulders and arms with possible diagnosis of non ST-elevation myocardial infarction with this. These symptoms went away after she received nitroglycerin in the ambulance. Cardiology consult was put in around midnight. Serial troponins trended down. She never really went over 100. She has been initiated on weight-based Lovenox, 81 of aspirin. Hemoglobin A1c panel, lipid panel has been ordered. She unfortunately was already eating breakfast this morning, so she probably cannot have a stress test, but maybe can have a stress test tomorrow morning. She is pain-free at this time. 2. Leukocytosis. She does have a history of chronic urinary tract infections. Will get urinalysis. Will also get blood cultures, a lactate, and a new white blood cell count this morning. 3. Gastrointestinal cancer with possible metastases and a colostomy. She has been having treatment for this since 2004. She is supposed to be on oral chemotherapy. Trying to get that medication reconciled. 4. Chronic kidney disease stage IIIB, sometimes stage IV, but she is at her baseline. She is stable with that. 5. Chronic obstructive pulmonary disease. No exacerbation noted. Nebulizers ordered. 6. Chronic pain syndrome. Fentanyl patch resumed. 7. Marijuana and methamphetamine abuse. There was not a urine drug screen ordered on admit. If she is positive for methamphetamines, it could explain some of the symptoms she was having and the elevation in her troponin. 8. Tobacco abuse. Cessation discussed. Nicotine patch has been ordered. 9. Deep venous thrombosis prophylaxis. She is on the Lovenox, weight-based. Dictated by SEGUNDO Marley for Victoriano Holt MD cc: SEGUNDO Marley MD
[2020-02-06 09:00] LABS: HEMOGLOBIN A1C 5.7 % (4.8-6.0)
[2020-02-06] MEDS ORDERED: ASPIRIN PO SCH (09:00)
[2020-02-06 09:03] LABS: ALBUMIN 3.1 g/dL (3.5-5.0); CALCIUM 8.9 mg/dL (8.8-10.2); CREATININE 1.5 mg/dL (0.5-0.9); MAGNESIUM 1.8 mg/dL (1.5-2.7); POTASSIUM 3.9 mmol/L (3.5-5.1); TOTAL BILIRUBIN 0.2 mg/dL (0.20-1.00); TOTAL PROTEIN 6.2 g/dL (6.3-8.3)
--- NOTE | 2020-02-06 09:28 | EKG Report ---
Test Performed on : 02/05/2020 8:08:18 PM Test Reason : CP Blood Pressure : / mmHG Vent. Rate : 088 BPM Atrial Rate : 088 BPM P-R Int : 132 ms QRS Dur : 076 ms QT Int : 392 ms P-R-T Axes : 071 072 053 degrees QTc Int : 474 ms Normal sinus rhythm. Possible Left atrial enlargement Borderline ECG No previous ECGs available Unconfirmed Result
[2020-02-06] MEDS ORDERED: DUONEB (A & A) ONE ×2 (10:15)
[2020-02-06] MEDS: DUONEB (A & A) INH SCH ×4 (10:40→23:55)
[2020-02-06] MEDS ORDERED: ASPIRIN EC ONE ×2 (10:42)
[2020-02-06] MEDS: ASPIRIN EC PO SCH (10:49)
--- NOTE | 2020-02-06 10:50 | EKG Report ---
Test Performed on : 02/06/2020 10:36:18 AM Test Reason : CP Blood Pressure : / mmHG Vent. Rate : 075 BPM Atrial Rate : 075 BPM P-R Int : 128 ms QRS Dur : 078 ms QT Int : 420 ms P-R-T Axes : 071 062 055 degrees QTc Int : 469 ms Normal sinus rhythm. Normal ECG When compared with ECG of 06-FEB-2020 06:20, (Unconfirmed) No significant change was found Confirmed by Christ Eldridge MD ([id number]) on 02/10/2020 7:15:06 PM
[2020-02-06 13:31] LABS: FREE T4 0.7 ng/dL (0.93-1.70); TSH 12.05 uIUmL (0.27-4.20)
--- NOTE | 2020-02-06 17:35 | PROGRESS NOTE ---
DATE: 02/06/2020 SUBJECTIVE: Ms. Winchester was sent over here from [place]. She came to [place] early this morning complaining of burning in her neck and down both arms and shoulders and shortness of breath. She is followed by Dr. Torsten Tracey in [place], Bag Sorter/Oncologist. This is a 59-year-old female with a medical history of renal stents, chronic kidney disease stage 3B, gastrointestinal cancer and possible metastasis on oral chemotherapy. She does self caths at home. She has a colostomy. Currently continues to smoke on a daily basis. Smokes marijuana twice a month. She says she smokes methamphetamine twice a month. Rarely drinks alcohol. Her symptoms started yesterday at about 4:30, burning behind the neck, down her shoulders, down both arms, as well as shortness of breath. Each event will last about 5 minutes and would happen about every 20 minutes. It seemed to get better when she sat down to rest and stopped completely when she was given nitroglycerin and aspirin in the ambulance. She denies any chest pain or shortness of breath. She just felt like her chest was restricted. She presented, her troponins were slightly elevated, never made it above 100, highest getting at 96 and then back down to 69. Denies any chest pain. Kidney dysfunction was stable and is at baseline. She did get sweaty with each event. No nausea or dizziness or lightheadedness. No fever. No cough and no sputum production. There were no ST changes on the EKG. So concerned of a possibility of a non-ST- elevation myocardial infarction and was sent over here to the hospital. PAST MEDICAL HISTORY: 1. Frequent chronic urinary tract infection. She does self caths at home. 2. Stromal tumor, gastrointestinal cancer with possible metastasis, is on oral chemotherapy. 3. Chronic hydronephrosis. 4. Chronic kidney disease stage 3B to stage 4. 5. Chronic pain syndrome. 6. Hypertension. 7. COPD. 8. Chronic anemia. PAST SURGICAL HISTORY: 1. Appendectomy. 2. Tubal ligation. 3. Hysterectomy. 4. Ventral hernia repair. 5. Bilateral renal stents. 6. At least 10 bladder stentings and repair of a fistula that started in 2005. 7. Gastrointestinal tumor resection 2004. 8. Colostomy. REVIEW OF HER ORDERS: I believe Cardiology is involved, Dr. Ziegler. I think we will continue to let her do self caths. I think she has a fentanyl patch ordered at 50 mcg every 72 hours. Other orders, aspirin 81 mg a day, Pulmicort 0.5 mg inhalation b.i.d., Lovenox 50 mg subcu q.12, Prilosec 20 mg daily, aspirin 324 mg daily, nicotine patch 21 mg, will do that daily. cc: Pelon Villa MD
[2020-02-06 17:57] LABS: UR AMPHETAMINES QUAL PRESUMPTIVE POSITIVE (NONE DETECT); UR BARBITUATES QUAL NONE DETECTED (NONE DETECT); UR BENZODIAZEPIN QUAL NONE DETECTED (NONE DETECT); UR CANNABINOIDS QUAL PRESUMPTIVE POSITIVE (NONE DETECT); UR COCAINE QUAL NONE DETECTED (NONE DETECT); UR METHADONE QUAL NONE DETECTED (NONE DETECT); UR OPIATES QUAL NONE DETECTED (NONE DETECT); UR OXYCODONE QUAL NONE DETECTED (NONE DETECT); UR PCP QUAL NONE DETECTED (NONE DETECT)
[2020-02-06 18:32] LABS: URINE SOURCE CATH
[2020-02-06 18:37] LABS: BILIRUBIN URINE NEGATIVE (NEGATIVE); BLOOD URINE MODERATE (NEGATIVE); COLOR YELLOW; GLUCOSE URINE NEGATIVE (NEGATIVE); KETONE URINE NEGATIVE (NEGATIVE); LEUKOCYTES URINE MODERATE (NEGATIVE); NITRITE URINE NEGATIVE (NEGATIVE); PROTEIN URINE 300 mg/dL (NEGATIVE); SP GRAVITY URINE 1.016; TURBIDITY URINE HAZY (CLEAR); UROBILINOGEN URINE NORMAL (NORMAL)
[2020-02-06 18:39] LABS: UR EPITHELIAL CELLS <10 /HPF (<10); URINE BACTERIA NEGATIVE /HPF; URINE RBC TNTC /HPF (<10); URINE WBC TNTC /HPF (<10)
[2020-02-06] MEDS: LOVENOX SUBQ SCH ×2 (19:52→23:23)
[2020-02-06] MEDS: PULMICORT INH SCH (20:20)
--- NOTE | 2020-02-07 02:01 | HISTORY AND PHYSICAL ---
ADDENDUM: Patient seen and examined by myself. Full note dictated and discussed with nurse practitioner. Patient presented to the hospital with chest pain. Troponin is elevated. It appears though she may be having a non-ST segment elevation myocardial infarction. Does have a history of GI stromal tumors for the past 15 years, currently on Gleevec. We are going to admit to the hospital. Consult Cardiology. Further orders as needed. cc: Victoriano Holt MD
[2020-02-07] MEDS ORDERED: PRILOSEC PO SCH (07:00)
[2020-02-07] MEDS ORDERED: NICODERM PATCH TD SCH (09:00)
[2020-02-07] MEDS ORDERED: PATIENT'S OWN MED PO SCH (09:00)
[2020-02-07] MEDS: PULMICORT INH SCH (09:17)
[2020-02-07] MEDS: DUONEB (A & A) INH SCH (09:17)
[2020-02-07] MEDS: ASPIRIN EC PO SCH (10:34)
--- NOTE | 2020-02-07 10:36 | EKG Report ---
Test Performed on : 02/07/2020 09:29:45 AM Test Reason : chest pain Blood Pressure : / mmHG Vent. Rate : 082 BPM Atrial Rate : 082 BPM P-R Int : 132 ms QRS Dur : 078 ms QT Int : 402 ms P-R-T Axes : 074 063 060 degrees QTc Int : 469 ms Normal sinus rhythm. Normal ECG When compared with ECG of 06-FEB-2020 10:36, (Unconfirmed) No significant change was found Confirmed by Bon Gallego MD ([id number]) on 02/09/2020 12:35:08 PM
[2020-02-07 11:21] LABS: BASO# 0.02 X1000 (0.0-0.2); BASO% 0.2 % (0.0-0.8); EOS# 0.22 X1000 (0.0-0.7); EOS% 2.6 % (0.0-10.0); HEMATOCRIT 37.5 % (37.0-47.0); HEMOGLOBIN 11.6 g/dL (12.0-16.0); IMM GRAN# 0.03 X1000 (0.0-0.04); IMM GRAN% 0.4 % (0.0-0.5); LYMPH# 1.87 X1000 (1.2-3.4); LYMPH% 21.9 % (20.5-51.1); MCHC 30.9 g/dL (33-37); MCV 93.8 FL (81-99); MONO# 0.43 X1000 (0.11-0.59); MPV 9.5 FL (7.4-10.4); NEUT# 5.96 X1000 (1.4-6.5); NEUT% 69.9 % (42.2-75.2); PLT 397 X1000 (130-400); RDW 14.9 % (11.5-14.5); WBC 8.53 X1000 (4.8-10.8)
[2020-02-07 12:14] VITALS: BP 147/90
[2020-02-07 12:33] LABS: ALB/GLOB RATIO 1.3; ALBUMIN 3.3 g/dL (3.5-5.0); CALCIUM 8.7 mg/dL (8.8-10.2); CREATININE 1.7 mg/dL (0.5-0.9); TOTAL BILIRUBIN 0.16 mg/dL (0.20-1.00); TOTAL PROTEIN 5.9 g/dL (6.3-8.3)
[2020-02-07] MEDS: LOVENOX SUBQ SCH (12:54)
--- NOTE | 2020-02-07 13:06 | ECHO REPORT ---
ORDER DATE: 02/06/2020 ECHOCARDIOGRAPHIC MEASUREMENTS: 1. Interventricular septum 1.3. 2. Left ventricular posterior wall 1.1. 3. Diastolic diameter 4.2 cm. 4. Left atrium 2.9 cm. 5. Aorta 2.8 cm. SUMMARY OF 2-DIMENSIONAL IMAGES: 1. Pulmonic valve was normal. 2. Aortic valve leaflets were trileaflet. 3. Mitral valve was normal. 4. Tricuspid valve was normal. 5. There is mild mitral regurgitation. 6. Mild tricuspid regurgitation. Peak velocity across the tricuspid valve less than 2 m/sec. 7. There is no aortic stenosis or regurgitation. 8. Peak velocity across the aortic valve less than 2 m/sec. 9. Normal left ventricular cavity size. 10. Mild left ventricular hypertrophy. Estimated ejection fraction of 70%. 11. There is no pericardial effusion, obvious intracardiac mass, or thrombus seen. cc: MD Jennifer Hook CRNP
--- NOTE | 2020-02-07 14:43 | CARDIOLOGY CONSULTATION ---
DATE: 02/07/2020 CHIEF COMPLAINT ON PRESENTATION: Burning sensation down the back of her neck as well as shoulders and arms. HISTORY OF PRESENT ILLNESS: Ms. Winchester is a 59-year-old white female with a history of GI malignancy. She follows with Dr. Tracey in [place]. She is maintained on Gleevec for this. She reports this episode of discomfort began around 2 days ago. It occurred shortly after having a heated argument with her boyfriend's father. It did not occur during physical exertion. She has been under lot of stress as they apparently had a close friend who also recently . In addition, the patient continues to smoke marijuana as well as methamphetamine. She reports having used it earlier this week. She denies any overt fevers. She has not had any exertional chest pain. PAST MEDICAL HISTORY: 1. Significant for chronic kidney disease. She self catheterizes at home, has bilateral ureteral stents. 2. 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 She is on Gleevec and has followed with Dr. Tracey in [place]. 3. Chronic pain. 4. Hypertension. 5. Chronic obstructive pulmonary disease. SOCIAL HISTORY: The patient smokes marijuana as well as crystal meth. She reported doing this in the last few days. She rarely drinks alcohol. She does smoke cigarettes. REVIEW OF SYSTEMS: A 10 system review of systems is negative except for those things mentioned in HPI. FAMILY HISTORY: Father apparently had diabetes as well as a possible heart attack. PHYSICAL EXAMINATION: She is afebrile, T-max was 100.1 degrees yesterday at 8 p.m. Heart rate 90, blood pressure 124/73. On presentation her blood pressure is 146/88.General: She is in no acute distress. HEENT: Oropharynx is moist. She has poor dentition. Her eye examination is pink conjunctivae. White sclerae. Neck: Examination shows no obvious thyromegaly or thyroid tenderness. Cardiovascular: She sounds to be in a regular rate and rhythm. She has no obvious murmurs. She has no S3.she has no lower extremity edema. Chest: Sounds relatively clear to auscultation bilaterally. She has no increased work of breathing. Abdomen: Soft, nontender, nondistended. She has no obvious organomegaly. Skin: Warm and dry throughout without any rashes. Neurological: She is moving all extremities well. She has no lateralizing deficits. PERTINENT DATA: She had a chest x-ray performed on the that demonstrates COPD changes, otherwise unremarkable. She had a number of EKG tracings all reviewed by me. Her initial EKG demonstrates sinus rhythm. No ischemic changes. This was on February 04 at 20:08. Next EKG occur in February 04 at 22:40 shows sinus rhythm, no ischemic changes. Subsequent EKG February 05 at 2:47 a.m. sinus rhythm, no ischemic changes. No signs of infarct. Next EKG February 05 at 6:20 a.m. Sinus rhythm. No ischemic changes. No signs of injury or infarct. Next EKG February 05 at 10:36, sinus rhythm. No ischemic changes. No infarct. Final EKG we have on file as February 06 at 9:29 a.m. shows sinus rhythm, no ischemic changes. No infarct, no injury pattern. White count today is 8.5, hematocrit 37, platelet count 397,000. Her UDS was positive for amphetamines as well as marijuana. She had too numerous to count white cells in her urine. Sodium 142, potassium 3.9, BUN 28, creatinine is 1.5 that was from yesterday giving her a GFR of 36. Troponins were checked with initial high sensitivity troponin of 60, subsequently went to 96 down to 80 subsequently 69 and 51. ASSESSMENT: Ms. Winchester is a 59-year-old female who presented with chest discomfort with atypical symptoms. It was described as a burning sensation down her neck into her arms. This occurred without exertion. PLAN: She has cardiac enzymes that are positive. She has multiple cardiac risk factors as well as continued methamphetamine use and tobacco. She has had negative EKGs. Her echocardiogram that was reviewed by me does not demonstrate any evidence of wall motion abnormalities. She has a preserved ejection fraction. At this time I would treat this medically, especially considering the patient's comorbidities of chronic kidney disease, gastrointestinal malignancies as well as chronic methamphetamine use. We will continue her on aspirin 81 [address] daily[address] will place her on amlodipine. We will initiate it at 5 mg daily. cc: Alexis Steven MD
--- NOTE | 2020-02-07 15:25 | DISCHARGE SUMMARY ---
ADMISSION DATE: 02/06/2020 DISCHARGE DATE: 02/07/2020 HOSPITAL COURSE: Ms. Winchester presented on 02/05/2020. She is a patient of Dr. Torsten Tracey in [place] [facility] [employer]. She is a 59-year-old white female with medical history of renal stents, chronic kidney disease stage 3B, gastrointestinal cancer and possible metastasis on oral chemotherapy. She does self cath. She has a colostomy. Currently continues to smoke on a daily basis. Smokes marijuana twice a month, but smokes methamphetamines twice a month I guess as well. She complained of burning behind her neck and her shoulder and both arms. Shortness of breath lasted about 5 minutes, but came on about every 20 minutes. Her troponin was mildly elevated, never over 100 but in the mid 90s to high 90s and so she was sent from [place] over here. EKG did not show any suspicious ST segment changes. She had no further chest pain. Echocardiogram done on 02/05 mild mitral regurgitation and mild tricuspid regurgitation. Normal left ventricular cavity size. Mild left ventricular hypertrophy. Estimated ejection fraction 70%. Cardiology did assess as well. No sign of cardiac ischemia and the patient was very eager to go home. Plan to discharge her on her current medications. She does have fentanyl, topically, she takes at home I think 50 mg. She takes Gleevec which is imatinib 400 mg p.o. daily. DISPOSITION: I will discharge her home. DISCHARGE INSTRUCTIONS: She can follow up with her primary care. cc: Pelon Villa MD
[2020-02-08] MEDS ORDERED: DURAGESIC 50 MICROGM/HR PATCH TD SCH (08:00)
[2020-02-08] MEDS ORDERED: NORVASC PO SCH (09:00)
== END 2020-02-07 16:06 | disposition home or self-care (01) | DRG 313 ==
LOC: P.ED 20:05 → SUATTDRO 02-06 12:26 → 4N 02-06 12:26
PROVIDERS: ATTEND Emergency Medicine